=== PATIENT | female | born 1960 | race Caucasian/White ===

== ENCOUNTER 2017-04-16 09:13 | Outpatient (CLI) | payer MEDICARE, OTHER | END 2017-04-16 09:14 | disposition home or self-care (01) | LOC: BICMAMMO 09:13 | PROVIDERS: ATTEND Family Medicine | DX: Z12.31 Encounter for screening mammogram for malignant neoplasm of breast (principal) | CPT/HCPCS: 77063; 77067 ==

== ENCOUNTER 2018-05-03 08:07 | Outpatient (CLI) | payer MEDICARE | END 2018-05-03 08:08 | disposition home or self-care (01) | LOC: BICMAMMO 08:07 | PROVIDERS: ATTEND Internal Medicine | DX: Z12.31 Encounter for screening mammogram for malignant neoplasm of breast (principal); Z85.41 Personal history of malignant neoplasm of cervix uteri | CPT/HCPCS: 77063; 77067 ==

== ENCOUNTER → 2019-04-17 | Day surgery (SDC) | payer MEDICARE ==
[~2019-04-17] MED LIST: Heparin 1,000 UNITS/ML VIAL ONE
--- NOTE | 2019-04-17 10:07 | SPC ---
SPC CVP LINE PICC INITIAL >5: 04/17/2019 12:00 AM PROCEDURE: Peripherally placed 47 cm single lumen PICC line. PICC Line Placement: The left arm was prepped and draped in sterile fashion. One percent lidocaine was used for local anesthetic. Under fluoroscopic and ultrasound guidance, the left basilic vein was patent and accessed with a micr opuncture needle. A guide wire was then advanced into the left basilic vein. A vascular sheath was then advanced over a guide wire, and a single lumen PICC line was trimmed. The PICC line was th en advanced into the central venous system. A final placement film demonstrates the tip of the catheter terminated in the caval-atrial junction. After confirmation of the catheter position, the catheter was sutured in place at the skin entry site . There was no immediate complication. Total fluoroscopic time 0.4 minutes. Total exposure 4777 mgray/sq cm IMPRESSION: Peripheral placement of a single lumen power PICC line into the left basilic vein using fluoroscopic and ultrasound guidance.
== END ==
LOC: SPEC 08:17
PROVIDERS: ATTEND Internal Medicine Infectious Disease
PROC: 02HV33Z Insertion of Infusion Device into Superior Vena Cava, Percutaneous Approach (ICD-10-PCS; principal; 2019-04-17)
PROC: B5181ZA Fluoroscopy of Superior Vena Cava using Low Osmolar Contrast, Guidance (ICD-10-PCS; 2019-04-17)
DX: M86.071 Acute hematogenous osteomyelitis, right ankle and foot (principal)
CPT/HCPCS: 36569; C1751; J1644

== ENCOUNTER 2019-06-08 12:48 | Outpatient (CLI) | payer MEDICARE ==
--- NOTE | 2019-06-08 14:00 | ULT ---
Left upper extremity venous Doppler ultrasound: 06/08/2019 COMPARISON: None HISTORY: Arm swelling, recent left upper extremity PICC removal TECHNIQUE: Multiplanar grayscale sonographic imaging of the venous structures of the left upper extre mity obtained with color flow and spectral analysis FINDINGS: Left internal jugular vein, subclavian vein, axillary vein, basilic vein, cephalic vein, ra dial vein, ulnar vein, and brachial vein appear patent with normal compression, augmentation, and color flow. There is a very small hypoechoic angulated collection deep to the skin at the PICC removal site measu ring 6 x 3 mm. IMPRESSION: No evidence for deep venous thrombosis of the left upper extremity.
== END 2019-06-08 12:49 | disposition home or self-care (01) ==
LOC: SCSULT 12:48
PROVIDERS: ATTEND Internal Medicine Infectious Disease
DX: R22.32 Localized swelling, mass and lump, left upper limb (principal)

== ENCOUNTER 2020-03-20 09:38 | Outpatient (CLI) | payer MEDICARE ==
--- NOTE | 2020-03-20 10:56 | MMO ---
Bilateral MAMMO Bilat Diag [facility]. CLINICAL HISTORY: Patient is 59 years old and is seen for diagnostic exam. The patient has no family history of breast cancer. The patient has no personal history of cancer. VIEWS: The views performed were: bilateral craniocaudal with tomosynthesis; bilateral mediolateral oblique with tomosynthesis; and bilateral mediolateral with tomosynthesis. FILMS COMPARED: The present examination has been compared to prior imaging studies performed at [facility] on 04/16/2017, 05/03/2018 and 03/20/2020. This study has been interpreted with the assistance of computer-aided detection. MAMMOGRAM FINDINGS: There are scattered fibroglandular densities. Finding 1: There are stable benign appearing calcifications seen in both breasts. Finding 2: There are multiple stable masses of varying size with circumscribed margins seen in both breasts. Finding 3: There is a fat containing, oval mass measuring 15 millimeters with circumscribed margins seen in the right breast at 9 o'clock. Evidence for fat necrosis. Finding 4: There is a lobular mass measuring 11 millimeters with circumscribed margins seen in the left breast at 11 o'clock. cyst There are no suspicious masses, suspicious calcifications, or new areas of architectural distortion. IMPRESSION: THERE IS NO MAMMOGRAPHIC EVIDENCE OF MALIGNANCY. A ROUTINE FOLLOW-UP MAMMOGRAM IN 1 YEAR IS RECOMMENDED. THE RESULTS OF THIS EXAM WERE SENT TO THE PATIENT. ACR BI-RADS Category 2 - Benign finding MAMMOGRAPHY NOTE: 1. A negative mammogram report should not delay a biopsy if a dominant of clinically suspicious mass is present. 2. Approximately 10% to 15% of breast cancers are not detected by mammography. 3. Adenosis and dense breasts may obscure an underlying neoplasm. Reported by: CHET WILLIAM MD Electonically Signed: [id number]
--- NOTE | 2020-03-20 12:47 | ULT ---
RIGHT BREAST ULTRASOUND: Date: 03/20/2020 HISTORY: Patient presents with a palpable finding in the right breast. Patient has history of trauma to the ri ght breast previously. FINDINGS: In the 9 o'clock region of the right breast, 4.0 cm from the nipple, there is a somewhat lobulated 1. 3 x 1.5 cm debris filled cyst, evidence for an area of fat necrosis. There are several other smaller cysts, also evidence for multiple areas of fat necrosis. IMPRESSION: Multiple areas of fat necrosis involving the right breast, the largest at 9 o'clock, 4.0 cm from the nipple. BI-RADS Category 2 - Benign findings. Continue annual follow-up screening mammograms. POS: OFF
--- NOTE | 2020-03-20 12:50 | ULT ---
LEFT BREAST ULTRASOUND: Date: 03/20/2020 HISTORY: Follow-up abnormal nodular finding on mammogram of 03/20/2020. FINDINGS: There are several circumscribed cysts in the left breast, the area of concern is at 11 o'clock, 5.0 c m from the nipple, measuring 0.8 x 1.1 cm in size. This has a benign appearance. IMPRESSION: Multiple circumscribed anechoic and hypoechoic foci within the left breast, upper aspect region. The area of concern from the mammogram is at 11 o'clock, 5.0 cm from the nipple, and has a benign appeara nce. BI-RADS Category 2 - Benign findings. Continue annual follow-up screening mammograms. POS: OFF
== END 2020-03-20 09:39 | disposition home or self-care (01) ==
LOC: BICMAMMO 09:38
PROVIDERS: ATTEND Internal Medicine
DX: N63.10 Unspecified lump in the right breast, unspecified quadrant (principal); R92.8 Other abnormal and inconclusive findings on diagnostic imaging of breast; N64.1 Fat necrosis of breast
CPT/HCPCS: 76642 ×2; 77066; G0279

== ENCOUNTER 2022-04-30 12:28 | Outpatient (CLI) | payer MEDICARE, OTHER | END 2022-04-30 12:29 | disposition home or self-care (01) | LOC: BICMAMMO 12:28 | PROVIDERS: ATTEND Internal Medicine | DX: Z12.31 Encounter for screening mammogram for malignant neoplasm of breast (principal); N63.20 Unspecified lump in the left breast, unspecified quadrant | CPT/HCPCS: 77063; 77067 ==

== ENCOUNTER 2022-05-06 09:53 | Outpatient (CLI) | payer MEDICARE | END 2022-05-06 09:54 | disposition home or self-care (01) | LOC: BICMAMMO 09:53 | PROVIDERS: ATTEND Internal Medicine | DX: N63.20 Unspecified lump in the left breast, unspecified quadrant (principal) | CPT/HCPCS: 76642; 77065; G0279 ==

== ENCOUNTER → 2022-05-08 | Day surgery (SDC) | payer MEDICARE | END | disposition home or self-care (01) | LOC: BICULT 12:44 | PROVIDERS: ATTEND Internal Medicine | PROC: 0H9U3ZX Drainage of Left Breast, Percutaneous Approach, Diagnostic (ICD-10-PCS; principal; 2022-05-08) | DX: D24.2 Benign neoplasm of left breast (principal); Z88.0 Allergy status to penicillin; Z88.1 Allergy status to other antibiotic agents; Z91.041 Radiographic dye allergy status | CPT/HCPCS: 19083; 88305 ==

== ENCOUNTER 2023-11-30 11:19 | Outpatient (CLI) | payer MEDICARE | END 2023-11-30 11:20 | disposition home or self-care (01) | LOC: SCSRAD 11:19 | PROVIDERS: ATTEND Nurse Practitioner Family | DX: G93.31 Postviral fatigue syndrome (principal) | CPT/HCPCS: 71046 ==

== ENCOUNTER 2023-12-23 12:11 | Outpatient (CLI) | payer MEDICARE | END 2023-12-23 12:12 | disposition home or self-care (01) | LOC: SCSRAD 12:11 | PROVIDERS: ATTEND Nurse Practitioner Family | DX: R06.02 Shortness of breath (principal) | CPT/HCPCS: 71046; 87635 ==